=== PATIENT | female | born 1930 | race Caucasian/White ===

== ENCOUNTER → 2016-04-23 | Outpatient (CLI) | payer MEDICARE ==
[~2016-04-23] MED LIST: /WARF25TA OR; ACET50TA OR; BRIMONIDINE OU; CIPRO PO; DORZOLAMIDE OU; IBUPROPHEN PO; LIDO1DIS2 TD; PERCOCET OR; TIMOLOL OU
--- NOTE | 2016-04-23 15:28 | REP ---
Lumbar spine series: Five views. History: Low back pain. Findings: Lumbar vertebral body heights are preserved. Alignment is normal. There is diffuse degenerative disc disease at each lumbar level. There is osteoarthritic facet narrowing and hypertrophy bilaterally at L5-S1 and L4-5. A mild dextroconvex curvature is seen. Pedicles and posterior elements are intact. Psoas margins are symmetric. Sacrum and SI joints appear intact. There is an 8 mm calcific opacity projecting over the left kidney, which may be intrarenal nephrolithiasis. Some vascular calcification is also noted. 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 Mild dextroconvex curvature. 8 mm calcific opacity may be an intrarenal stone. No acute bony abnormality.
== END ==
LOC: M CLY 14:32
PROVIDERS: ATTEND Family Medicine
DX: M51.36 Other intervertebral disc degeneration, lumbar region (principal); M12.88 Other specific arthropathies, not elsewhere classified, other specified site
CPT/HCPCS: 72110; G0463

== ENCOUNTER → 2016-04-23 | Outpatient (REF) | payer MEDICARE | LOC: M SFHCCLAY 14:12 | PROVIDERS: ATTEND Family Medicine | DX: I10 Essential (primary) hypertension (principal); Z53.8 Procedure and treatment not carried out for other reasons ==

== ENCOUNTER → 2016-04-26 | Outpatient (REF) | payer MEDICARE ==
[2016-04-26 17:28] LABS: CALCIUM LEVEL 8.8 MG/DL (8.8-10.2); CREATININE FOR GFR 0.98 MG/DL (0.55-1.02); GLOMERULAR FILTRATION RATE 57.6 (>32)
== END | disposition home or self-care (01) ==
LOC: M LABSMT 11:57 → M LABDRAWC 12:00
PROVIDERS: ATTEND Urology
DX: Z87.442 Personal history of urinary calculi (principal)

== ENCOUNTER → 2016-04-28 | Outpatient (CLI) | payer MEDICARE ==
[~2016-04-28] MED LIST changes: +ISOVUE-370 76% 100ML VIAL (Q9967) As Ordered ONE
--- NOTE | 2016-04-28 18:05 | REP ---
CT CHEST WITHOUT CONTRAST: 04/28/2016. Comparison: 01/28/[address] abdomen and pelvis 10/06/2015. Clinical history: Follow-up pulmonary nodule. Noncontrast protocol was utilized. Findings: The lung narvaez are well inflated. There is a peripheral 9 mm noncalcified nodule posterior axillary line subpleural region of the right lower lobe lateral basal segment, stable. There is also a 5 mm nodule without calcification superior lingular segment left upper lobe adjacent to the left heart in the subpleural region. There is some minor subsegmental atelectatic change anterior to the major fissure in the inferior lingular segment and some scarring at the junction of the superior and inferior lingular segment along the left heart border. Some minor dependent atelectasis noted. There is no pleural effusion, other significant nodule or parenchymal lung mass. There is no bronchiectasis. No pneumothorax, pneumomediastinum. The heart shows some left atrial enlargement, but is not grossly enlarged. There is no pericardial thickening. There is a homogeneous low density soft tissue mass in the anterior-superior mediastinum 5.9 x 2.7 x 3.1 cm. The previous study showed it at 5.7 x 2.7 x 2.[address] attenuation values suggesting it is fluid. No mediastinal pathologic sized adenopathy. There is atherosclerotic calcification of the aortic arch and descending aorta. There is some fluid in the superior pericardial recess. No axillary or supraclavicular mass. There is a fullness of the left thyroid lobe as before. It has a single calcification within it. The bone windows show the sternum, manubrium, clavicles, AC joints, visualized portions of the glenohumeral joints, scapulae, ribs and spine without acute compression deformity. There are degenerative disc changes at multiple levels mid and lower thoracic spine and upper lumbar regions. No destructive lesions. In the upper abdomen, the stomach shows no hiatal hernia. That portion of liver and spleen included were unremarkable. Gallbladder shows some small stones within. There is calcification of the aorta without aneurysm. Adrenal glands intact. Cysts in the upper pole left kidney with some cortical calcifications. Right kidney shows the largest cyst visible and the portion of the kidneys included which measured 3.4 cm. There are degenerative changes in the spine. That portion of the pancreas, small bowel loops and colon visible unremarkable. Impression: 1. Right lower lobe 9 mm noncalcified pulmonary nodule and a 5 mm nodule superior segment of the lingula, unchanged dating back to the two prior CTs as early as 10/06/2015. 2. Anterior superior mediastinal mass of fluid type density suggesting cystic-appearing mass. Differential considerations were as discussed on the previous study. 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 It is grossly unchanged. 3. Some calcified gallstones seen in the gallbladder. Unchanged cysts in the kidneys upper poles bilaterally and stones within the cortex on the left only. Signed by Sandro Orellana MD 04/29/2016 09:19 A
== END ==
LOC: M RAD 12:24
PROVIDERS: ATTEND Family Medicine
DX: R91.1 Solitary pulmonary nodule (principal); K80.20 Calculus of gallbladder without cholecystitis without obstruction; N20.0 Calculus of kidney; K57.30 Diverticulosis of large intestine without perforation or abscess without bleeding
CPT/HCPCS: 71250; 74177; Q9967

== ENCOUNTER → 2016-04-28 | Outpatient (CLI) | payer MEDICARE ==
[~2016-04-28] MED LIST changes: -ISOVUE-370 76% 100ML VIAL (Q9967) As Ordered ONE
--- NOTE | 2016-04-28 16:51 | REP ---
CT ABDOMEN AND PELVIS, 04/18/2016: INDICATIONS: History of kidney stones. COMPARISON: CT abdomen and pelvis without contrast subsequently followed by CT with IV contrast 10/06/2015. TECHNIQUE: Following IV contrast administration of 100 mL Isovue-370 mg/mL, 3 mm spiral axial sections were performed through the abdomen and pelvis. Delayed 5 minute images were obtained through the abdomen and pelvis. FINDINGS: Small amount of fibrotic scarring is present in the lung bases bilaterally.4.5 mm lingular nodule is unchanged from CT 10/06/15. Liver is without focal lesions. Spleen and pancreas within normal limits. There is a 8.5 mm intermediate density focus in the gallbladder lumen consistent with stones and or sludge. There are additional noncalcified stones and sludge balls also seen in the dependent portion of the gallbladder. There is no gallbladder wall thickening. The common bile duct is 9 mm transverse dimension. There is no obvious choledocholithiasis. Adrenal glands are normal. There are multiple renal cortical cysts and there is dilatation of upper pole, left renal calices as well as a nonobstructing 8 mm cyst. There is an 8 mm calcification within a dilated renal bradley in the upper pole left kidney. There is also a 3.6 cm cyst off the medial posterior superior aspect of the right kidney. Stomach is contracted. Small bowel is without obstruction. Terminal ileum is normal. There is no appendiceal inflammation. Abdominal aorta is of normal course and caliber. There are a few small nonspecific retroperitoneal nodes. 16 mm umbilical hernia contains omental fat only. There is beam hardening artifact from the left hip prosthesis. The bladder is normal. The uterus is atrophic. There are no adnexal masses. There is moderate sigmoid diverticulosis. There is no free air or ascites. IMPRESSION: 1. Noncalcified stones and or sludge within the gallbladder lumen. No gallbladder wall thickening. Common bile duct is 9 mm AP dimension. Borderline enlarged for age. 2. Bilateral renal cortical cysts as well as some dilated upper pole left renal calices containing contrast within a caliceal cyst. Additionally, there is an 8 mm nonobstructing calculus in the posterior superior left kidney within a dilated caliceal cyst, not significantly changed. 3. Extensive sigmoid diverticulosis. Moderate diffuse retained colonic stool. 4. Unremarkable appendix. MTDD
== END ==
LOC: M RAD 12:19
PROVIDERS: ATTEND Urology
DX: K80.20 Calculus of gallbladder without cholecystitis without obstruction (principal); N20.0 Calculus of kidney; K57.30 Diverticulosis of large intestine without perforation or abscess without bleeding

== ENCOUNTER → 2017-06-01 | Outpatient (REF) | payer OTHER ==
[2017-06-01 16:52] LABS: ANION GAP 7 MEQ/L (8-16); BLOOD UREA NITROGEN 19 MG/DL (7-18); CALCIUM LEVEL 8.9 MG/DL (8.8-10.2); CARBON DIOXIDE LEVEL 30 MEQ/L (21-32); CHLORIDE LEVEL 103 MEQ/L (98-107); CREATININE FOR GFR 0.95 MG/DL (0.55-1.30); FREE T4 1.13 NG/DL (0.76-1.46); GLOMERULAR FILTRATION RATE 59.4 (>32); GLUCOSE, FASTING 85 MG/DL (70-100); POTASSIUM SERUM 4.2 MEQ/L (3.5-5.1); SODIUM LEVEL 140 MEQ/L (136-145); THYROID STIMULATING HORMONE 0.849 uIU/ML (0.358-3.740)
== END ==
LOC: M SFHCCLAY 16:13
DX: I10 Essential (primary) hypertension (principal)

== ENCOUNTER → 2017-09-15 | Outpatient (CLI) | payer MEDICARE | LOC: M RAD 09:31 | DX: Q24.8 Other specified congenital malformations of heart (principal); R91.8 Other nonspecific abnormal finding of lung field; I70.90 Unspecified atherosclerosis; N20.0 Calculus of kidney; N28.1 Cyst of kidney, acquired; K80.20 Calculus of gallbladder without cholecystitis without obstruction | CPT/HCPCS: 71250 ==

== ENCOUNTER → 2018-03-29 | Outpatient (REF) | payer MEDICARE | LOC: M SFHCCLAY 13:53 | DX: I10 Essential (primary) hypertension (principal); Z53.8 Procedure and treatment not carried out for other reasons ==

== ENCOUNTER → 2018-06-27 | Outpatient (REF) | payer MEDICARE ==
[2018-06-27 17:01] LABS: CALCIUM LEVEL 8.4 MG/DL (8.8-10.2); CREATININE FOR GFR 0.94 MG/DL (0.55-1.30); FREE T4 0.95 NG/DL (0.76-1.46); POTASSIUM SERUM 3.8 MEQ/L (3.5-5.1); THYROID STIMULATING HORMONE 1.14 uIU/ML (0.358-3.740)
== END ==
LOC: M SFHCCLAY 10:36
PROVIDERS: ATTEND Family Medicine
DX: I10 Essential (primary) hypertension (principal)

== ENCOUNTER → 2018-09-11 | Outpatient (REF) | payer MEDICARE ==
[~2018-09-11] MED LIST changes: -/WARF25TA OR; -ACET50TA OR; +COUM1TAB18 OR; +MAPA500T17 OR; +OXYC1TAB23 OR; -PERCOCET OR
[2018-09-11 17:48] LABS: GLOMERULAR FILTRATION RATE 55.8 (>32); POTASSIUM SERUM 3.6 MEQ/L (3.5-5.1)
== END ==
LOC: M LABDRAWC 16:29
PROVIDERS: ATTEND Internal Medicine Cardiovascular Disease
DX: I10 Essential (primary) hypertension (principal); I25.10 Atherosclerotic heart disease of native coronary artery without angina pectoris

== ENCOUNTER → 2018-09-11 | Outpatient (REF) | payer MEDICARE | LOC: M SFHCCLAY 10:44 | PROVIDERS: ATTEND Family Medicine | DX: I25.10 Atherosclerotic heart disease of native coronary artery without angina pectoris (principal); I10 Essential (primary) hypertension ==

== ENCOUNTER → 2018-12-14 | Outpatient (REF) | payer MEDICARE | LOC: M SFHCCLAY 11:01 | PROVIDERS: ATTEND Family Medicine | DX: N39.0 Urinary tract infection, site not specified (principal) | CPT/HCPCS: 81002; 87088; 87186; G0463 ==

== ENCOUNTER → 2019-01-16 | Outpatient (REF) | payer MEDICARE | LOC: M SFHCCLAY 13:27 | PROVIDERS: ATTEND Family Medicine | DX: Z53.9 Procedure and treatment not carried out, unspecified reason (principal) ==

== ENCOUNTER → 2019-01-17 | Outpatient (REF) | payer MEDICARE | LOC: M SFHCCLAY 11:10 | PROVIDERS: ATTEND Family Medicine | DX: R30.0 Dysuria (principal) ==

== ENCOUNTER → 2019-02-08 | Outpatient (REF) | payer MEDICARE ==
[2019-02-08 16:34] LABS: APPEARANCE, URINE CLEAR (CLEAR); BACTERIA, URINE AUTO 1+ (NEGATIVE); BILIRUBIN, URINE AUTO NEGATIVE (NEGATIVE); BLOOD, URINE BLOOD 1+ (NEGATIVE); COLOR, URINE YELLOW (YELLOW); GLUCOSE, URINE (UA) AUTO NEGATIVE (NEGATIVE); KETONE, URINE AUTO NEGATIVE (NEGATIVE); LEUKOCYTE ESTERASE, URINE AUTO 3+ (NEGATIVE); MUCUS, URINE SMALL (NEGATIVE); NITRITE, URINE AUTO NEGATIVE (NEGATIVE); PROTEIN, URINE AUTO NEGATIVE (NEGATIVE); RBC, URINE AUTO 4 /HPF (0-3); SPECIFIC GRAVITY URINE AUTO 1.005 (1.002-1.035); SQUAMOUS EPITHELIAL CELL UR AU 0 /HPF (0-6); UROBILINOGEN, URINE AUTO 0.2 mg/dL (0.0-2.0); WBC, URINE AUTO 78 /HPF (0-3)
== END ==
LOC: M LABSMT 13:41
PROVIDERS: ATTEND Nurse Practitioner Women's Health
DX: N39.0 Urinary tract infection, site not specified (principal)

== ENCOUNTER → 2019-09-24 | Outpatient (REF) | payer MEDICARE ==
[2019-09-24 18:10] LABS: HEMOGLOBIN 12.4 g/dl (12.0-15.5); MEAN CORPUSCULAR HEMOGLOBIN 30.5 pg (27.0-33.0); MEAN CORPUSCULAR HGB CONC 32.6 g/dl (32.0-36.5); MEAN CORPUSCULAR VOLUME 93.6 fl (80.0-96.0); PLATELET COUNT, AUTOMATED 280 10^3/uL (150-450); RED BLOOD COUNT 4.06 10^6/uL (4.00-5.40); WHITE BLOOD COUNT 9.1 10^3/uL (4.0-10.0)
[2019-09-24 18:24] LABS: ALBUMIN 3.1 GM/DL (3.2-5.2); CALCIUM LEVEL 9.1 MG/DL (8.8-10.2); CHOLESTEROL RISK RATIO 1.938 (<5); CREATININE FOR GFR 1.05 MG/DL (0.55-1.30); GLOMERULAR FILTRATION RATE 52.7 (>32); POTASSIUM SERUM 4.2 MEQ/L (3.5-5.1); THYROID STIMULATING HORMONE 0.339 uIU/ML (0.358-3.740); TOTAL PROTEIN 6.9 GM/DL (6.4-8.2); URIC ACID 5.9 MG/DL (2.6-6.0)
== END ==
LOC: M SFHCCLAY 10:32
PROVIDERS: ATTEND Family Medicine
DX: J30.9 Allergic rhinitis, unspecified (principal); I10 Essential (primary) hypertension; I25.10 Atherosclerotic heart disease of native coronary artery without angina pectoris

== ENCOUNTER → 2019-10-29 | Outpatient (REF) | payer MEDICARE ==
[2019-10-29 16:48] LABS: FREE T3 2.8 PG/ML (2.2-4.0); FREE T4 1.1 NG/DL (0.76-1.46); THYROID STIMULATING HORMONE 0.061 uIU/ML (0.358-3.740)
== END ==
LOC: M SFHCCLAY 12:23
PROVIDERS: ATTEND Family Medicine
DX: E05.90 Thyrotoxicosis, unspecified without thyrotoxic crisis or storm (principal)

== ENCOUNTER → 2020-05-07 | Outpatient (REF) | payer MEDICARE | LOC: M SFHCCLAY 11:10 | PROVIDERS: ATTEND Family Medicine | DX: R30.0 Dysuria (principal); R35.0 Frequency of micturition ==

== ENCOUNTER → 2020-05-29 | Outpatient (REF) | payer MEDICARE ==
[2020-05-30 12:23] LABS: APPEARANCE, URINE CLEAR (CLEAR); BACTERIA, URINE AUTO 1+ (NEGATIVE); BILIRUBIN, URINE AUTO NEGATIVE (NEGATIVE); BLOOD, URINE BLOOD 1+ (NEGATIVE); COLOR, URINE STRAW (YELLOW); GLUCOSE, URINE (UA) AUTO NEGATIVE (NEGATIVE); KETONE, URINE AUTO NEGATIVE (NEGATIVE); LEUKOCYTE ESTERASE, URINE AUTO 3+ (NEGATIVE); NITRITE, URINE AUTO NEGATIVE (NEGATIVE); PROTEIN, URINE AUTO NEGATIVE (NEGATIVE); RBC, URINE AUTO 4 /HPF (0-3); SPECIFIC GRAVITY URINE AUTO 1.002 (1.002-1.035); SQUAMOUS EPITHELIAL CELL UR AU 0 /HPF (0-6); UROBILINOGEN, URINE AUTO 0.2 mg/dL (0.0-2.0); WBC, URINE AUTO 54 /HPF (0-3)
== END ==
LOC: M LABSMT 15:00
PROVIDERS: ATTEND Nurse Practitioner Women's Health
DX: R30.0 Dysuria (principal)

== ENCOUNTER → 2020-08-11 | Outpatient (REF) | payer MEDICARE ==
[2020-08-11 16:49] LABS: FREE T4 0.96 NG/DL (0.76-1.46); THYROID STIMULATING HORMONE 0.349 uIU/ML (0.358-3.740)
[2020-08-11 19:47] LABS: FREE T3 3.1 PG/ML (2.2-4.0)
== END ==
LOC: M SFHCCLAY 13:32
PROVIDERS: ATTEND Family Medicine
DX: R79.89 Other specified abnormal findings of blood chemistry (principal); Z79.899 Other long term (current) drug therapy
CPT/HCPCS: 84439; 84443; 84481; G0463

== ENCOUNTER → 2020-10-15 | Outpatient (REF) | payer MEDICARE ==
[2020-10-15 16:24] LABS: APPEARANCE, URINE TURBID (CLEAR); BACTERIA, URINE AUTO 1+ (NEGATIVE); BILIRUBIN, URINE AUTO NEGATIVE (NEGATIVE); BLOOD, URINE BLOOD 1+ (NEGATIVE); COLOR, URINE YELLOW (YELLOW); GLUCOSE, URINE (UA) AUTO NEGATIVE (NEGATIVE); KETONE, URINE AUTO NEGATIVE (NEGATIVE); LEUKOCYTE ESTERASE, URINE AUTO 3+ (NEGATIVE); MUCUS, URINE SMALL (NEGATIVE); NITRITE, URINE AUTO NEGATIVE (NEGATIVE); PROTEIN, URINE AUTO NEGATIVE (NEGATIVE); RBC, URINE AUTO 17 /HPF (0-3); SPECIFIC GRAVITY URINE AUTO 1.008 (1.002-1.035); SQUAMOUS EPITHELIAL CELL UR AU 2 /HPF (0-6); UROBILINOGEN, URINE AUTO 0.2 mg/dL (0.0-2.0); WBC, URINE AUTO TNTC /HPF (0-3)
== END ==
LOC: M SFHCCLAY 15:49
PROVIDERS: ATTEND Family Medicine
DX: R30.0 Dysuria (principal)

== ENCOUNTER → 2021-01-26 | Outpatient (CLI) | payer MEDICARE ==
[~2021-01-26] MED LIST changes: +AMLO2.5T3; +ATOR40TA75; +HYDR-3490; +LATANOPROST; +LISI10TA22 PO; +METO25TA4; +OXYB5TAB10; +POLY2.5S; +PREDOPD; +TIMO0.5S29
== END ==
LOC: M LABSMTC 11:42
PROVIDERS: ATTEND Anesthesiology
DX: Z01.812 Encounter for preprocedural laboratory examination (principal); Z20.822 Contact with and (suspected) exposure to COVID-19

== ENCOUNTER 2021-01-30 09:55 | Day surgery (SDC) | payer MEDICARE ==
[~2021-01-30] VITALS: Ht 170.2 cm; Wt 87.9 kg
[~2021-01-30 09:55] MED LIST changes: +CEFUROXIME 1MG/0.1ML INTRACAMERAL INJ As Ordered ONE; +DUOVISC (0.50ML VISCOAT/0.85ML PROVISC) OPHTH KIT As Ordered ONE; +MIDAZOLAM INJ 2MG/2ML VIAL (J2250 PER 1MG) As Ordered ONE; +PHENYLEPHRINE 1.5%/LIDOCAINE 1% INTRAOCULAR 0.8ML SYRINGE As Ordered ONE; +PROPARACAINE 0.5% OPHTH SOL 15ML OS ONE; +fentaNYL 100 MCG/2 ML INJECTION (J3010) As Ordered ONE
[2021-01-30] MEDS ORDERED: BSS IRR 500ML/OMIDRIA 4ML IRR BAG (OR ONLY) As Ordered ONE (10:36)
[2021-01-30] MEDS: OFLOXACIN 0.3 % (OCUFLOX) OPTH SOL 5ML OS SCH ×3 (11:03→11:19)
[2021-01-30] MEDS: TROPICAMIDE 1% OPHTH SOLN 2ML OS SCH ×3 (11:04→11:19)
[2021-01-30] MEDS: PHENYLEPHRINE 2.5% OPHTH SOL 2ML OS SCH ×3 (11:04→11:19)
[2021-01-30 13:05] VITALS: BP 171/72
--- NOTE | 2021-01-30 14:00 | ROOPDOC ---
[facility] Report Of Operation Report of Operation PREPROCEDURE DIAGNOSES: Mature cataract left eye. POSTPROCEDURE DIAGNOSES: Same. PROCEDURE PERFORMED: Phacoemulsification cataract extraction implantation intraocular lens left eye. SURGEON: Sandro Santiago MD BIOLOGY SPECIALIST: None ANESTHESIA: MAC. ESTIMATED BLOOD LOSS: Approximately 0 cc mL. COMPLICATIONS: None. LENS: 18.0. diopters SPECIMENS REMOVED: None INDICATIONS: Patient experienced decreased vision associated with cataract formation. Slit-lamp examination confirmed the diagnosis. Informed consent was obtained for removal of the cataract and placement of intraocular lens. PROCEDURE NOTE: Patient was identified in the holding room and the operative eye was marked. Patient was wheeled spine the OR suite and positioned on the stretcher. The lids lashes and periocular face of the operative eye were prepped with 5% povidone iodine. The lashes were taped with a Tegaderm dressing. A speculum was placed in the operative eye. 1 mm side-port was created. 1% preservative-free lidocaine was injected. Viscoat was injected. A 2.6 mm stepped groove clear cornea incision was made temporally. A bent cystotome needle and Utrata forceps were used to fashion a continuous cu rvilinear capsulorhexis. BSS was used to hydrodissect. The lens was found to rotate freely. The lens was phacoemulsified using a divide and conquer technique. Residual cortex was removed with the I/A. Provisc was injected to expand the capsular bag. The lens was injected using the lens delivery system and positioned with a Archie hook. Residual viscoelastic was removed with the I/A. BSS was used to hydrate the corneal wound. Antibiotic prophylaxis was injected. The speculum was removed from the eye. A shield was taped over the eye. The patient was sent in excellent condition to the recovery room with a shield. SANDRO SANTIAGO M.D. Jan 30, 2021 14:00
== END 2021-01-30 13:10 | disposition home or self-care (01) ==
LOC: M SDC 09:55
PROVIDERS: ATTEND Ophthalmology
DX: H25.12 Age-related nuclear cataract, left eye (principal); H40.9 Unspecified glaucoma; B02.9 Zoster without complications; M25.561 Pain in right knee; R91.1 Solitary pulmonary nodule; I31.8 Other specified diseases of pericardium; I10 Essential (primary) hypertension; E78.5 Hyperlipidemia, unspecified; R35.0 Frequency of micturition; Z87.442 Personal history of urinary calculi; Z88.1 Allergy status to other antibiotic agents; Z79.899 Other long term (current) drug therapy; Z79.82 Long term (current) use of aspirin
CPT/HCPCS: 66984; J1097; J2250; J3010; V2632

== ENCOUNTER → 2021-04-09 | Outpatient (REF) | payer MEDICARE ==
[~2021-04-09] MED LIST changes: -CEFUROXIME 1MG/0.1ML INTRACAMERAL INJ As Ordered ONE; -DUOVISC (0.50ML VISCOAT/0.85ML PROVISC) OPHTH KIT As Ordered ONE; -MIDAZOLAM INJ 2MG/2ML VIAL (J2250 PER 1MG) As Ordered ONE; -PHENYLEPHRINE 1.5%/LIDOCAINE 1% INTRAOCULAR 0.8ML SYRINGE As Ordered ONE; -PROPARACAINE 0.5% OPHTH SOL 15ML OS ONE; -fentaNYL 100 MCG/2 ML INJECTION (J3010) As Ordered ONE
[2021-04-09 16:08] LABS: APPEARANCE, URINE CLOUDY (CLEAR); BACTERIA, URINE AUTO 1+ (NEGATIVE); BILIRUBIN, URINE AUTO NEGATIVE (NEGATIVE); BLOOD, URINE BLOOD 1+ (NEGATIVE); COLOR, URINE YELLOW (YELLOW); GLUCOSE, URINE (UA) AUTO NEGATIVE (NEGATIVE); KETONE, URINE AUTO NEGATIVE (NEGATIVE); LEUKOCYTE ESTERASE, URINE AUTO 3+ (NEGATIVE); MUCUS, URINE SMALL (NEGATIVE); NITRITE, URINE AUTO POSITIVE (NEGATIVE); PROTEIN, URINE AUTO NEGATIVE (NEGATIVE); RBC, URINE AUTO 9 /HPF (0-3); SPECIFIC GRAVITY URINE AUTO 1.011 (1.002-1.035); SQUAMOUS EPITHELIAL CELL UR AU 1 /HPF (0-6); UROBILINOGEN, URINE AUTO 0.2 mg/dL (0.0-2.0); WBC, URINE AUTO TNTC /HPF (0-3)
== END ==
LOC: M SFHCCLAY 13:17
PROVIDERS: ATTEND Family Medicine
DX: R30.0 Dysuria (principal)